=== PATIENT | female | born 2000 | race Caucasian/White ===

== ENCOUNTER 2020-12-19 19:32 | Inpatient (IN) ==
[2020-12-19 18:12] LABS: Basophils % 0.1 %; Eosinophils # 0.1 K/mcL (0.0-0.6); Eosinophils % 0.7 %; Hematocrit 35.4 % (35.3-44.9); Hemoglobin 11.3 g/dL (11.5-15.4); Immature Granulocytes % 0.3 % (0-4); Lymphocytes # 1.6 K/mcL (0.6-4.6); Lymphocytes % 17.5 %; Mean Corpuscular HGB Conc 31.9 g/dL (31.6-35.5); Mean Corpuscular Volume 87.8 fL (83.0-100.0); Mean Platelet Volume 10.5 fL (9.4-12.4); Monocytes # 0.7 K/mcL (0.0-1.3); Neutrophils # 6.7 K/mcL (1.6-8.9); Platelet Count 385 K/mcL (140-400); Red Blood Count 4.03 M/mcL (3.82-4.97); Red Cell Distribution Width 14.6 % (11.5-14.5); Segmented Neutrophils % 73.4 %; White Blood Count 9.1 K/mcL (4.3-11.1)
[2020-12-19 18:31] LABS: Alanine Aminotransferase 8 Units/L (7-52); Aspartate Amino Transferase 12 Units/L (13-39); BUN/Creatinine Ratio 14 (6-26); Blood Urea Nitrogen 8 mg/dL (6-20); Lactate Dehydrogenase 140 Units/L (140-271); eGFR For African Americans > 60 (> 60); eGFR For Non-African Americans > 60 (> 60)
[2020-12-19 18:34] LABS: Bilirubin,Urine Negative (Negative); Blood,Urine Negative (Negative); Clarity,Urine Clear (Clear); Color,Urine Light-Yellow (Yellow); Glucose,Urine (UA) Normal (Normal); Ketones,Urine Negative (Negative); Leukocyte Esterase,Urine Negative (Negative); Nitrite,Urine Negative (Negative); Protein,Urine Negative (Neg-Trace); Specific Gravity,Urine 1.015 (1.010-1.025); Urobilinogen,Urine Normal (Normal)
[2020-12-19 18:42] LABS: Protein/Creatinine Ratio,Urine 0.14 mg/mg (0.00-0.20)
[~2020-12-19 19:32] MED LIST: Acetaminophen 325 MG TABLET PO ONE; Azithromycin 500 MG in 0.9 % Sodium Chloride 250 ML IVPB PRN; Famotidine 20 MG/2 ML VIAL IVP PRN; Metoclopramide 10 MG/2 ML VIAL IVP ONE; Metoclopramide 10 MG/2 ML VIAL IVP PRN; Naloxone 0.4 MG/ML INJ IVP PRN; Ondansetron 4 MG/2 ML VIAL IVP PRN; Oxytocin 20 units/ LR 1000 mL 20 UNIT/1,000 ML BAG IVC SCH; Ringers Solution, Lactated 1,000 ML IVC ONE; Ringers Solution, Lactated 1,000 ML IVC SCH; Ringers Solution, Lactated 1,000 ML ONE
[2020-12-19] MEDS ORDERED: *HR* Nalbuphine 10 MG/ML AMPUL IV ONE (19:35)
[2020-12-19] MEDS ORDERED: Epidural Premix (fent/bupiv) 110 ML EP ONE (19:42)
[2020-12-19] MEDS ORDERED: *HR* FentaNYL (PF) 100 MCG/2 ML VIAL ONE (19:43)
[2020-12-19] MEDS ORDERED: Ropivacaine/PF 0.2% 20 ML VIAL ONE (19:44)
[2020-12-19] MEDS ORDERED: EPHEDrine 50 MG/ML VIAL IVP PRN (20:13)
[2020-12-19] MEDS ORDERED: *HR* FentaNYL (PF) 100 MCG/2 ML VIAL EP ONE (20:13)
[2020-12-19] MEDS ORDERED: Epidural Premix (fent/bupiv) 110 ML EP SCH (20:15)
[2020-12-19 20:16] LABS: Influenza A PCR Negative (Negative); Influenza B PCR Negative (Negative); Resp. Syncytial Virus PCR Negative (Negative); SARS-CoV-2 by PCR (In House) Negative (Negative)
[2020-12-19 20:32] LABS: Amphetamine Screen,Urine Negative ng/mL (Cutoff=1000); Barbiturate Screen,Urine Negative ng/mL (Cutoff=200); Benzodiazepines Screen,Urine Negative ng/mL (Cutoff=200); Cannabinoid Screen,Urine Negative ng/mL (Cutoff = 50); Cocaine Screen,Urine Negative ng/mL (Cutoff= 300); Opiate Screen,Urine Negative ng/mL (Cutoff=300); Phencyclidine Screen,Urine Negative ng/mL (Cutoff=25)
[2020-12-20] MEDS ORDERED: Lidocaine/EPI 1:200k 2% PF 20 ML VIAL ONE (02:59)
[2020-12-20] MEDS ORDERED: Ondansetron 4 MG/2 ML VIAL ONE (03:16)
[2020-12-20] MEDS ORDERED: Acetaminophen IV 1,000 MG/100 ML BAG IVPB ONE (03:29)
[2020-12-20] MEDS ORDERED: *HR* FentaNYL (PF) 100 MCG/2 ML VIAL ONE (03:31)
[2020-12-20] MEDS ORDERED: Ketorolac 30 MG/ML VIAL ONE (04:05)
[2020-12-20] MEDS ORDERED: *HR* Morphine Sulfate/PF 10 MG/10 ML AMPUL ONE (04:18)
[2020-12-20] MEDS ORDERED: Naloxone 0.4 MG/ML INJ IVP PRN (06:05)
[2020-12-20] MEDS ORDERED: Ondansetron 4 MG/2 ML VIAL IVP PRN (06:05)
[2020-12-20] MEDS ORDERED: Rho Immune Globulin 1,500 UNIT SYRINGE IM ONE (06:05)
[2020-12-20] MEDS ORDERED: Metoclopramide 10 MG/2 ML VIAL IVP PRN (06:05)
[2020-12-20] MEDS: Acetaminophen 325 MG TABLET PO SCH ×3 (08:24→19:59)
[2020-12-20] MEDS: Prenatal Vit/FA 1 EACH TABLET PO SCH (08:24)
[2020-12-20] MEDS: Ibuprofen 600 MG TABLET PO SCH ×3 (08:24→19:59)
[2020-12-20] MEDS: *HR* OxyCODONE Immed Rel 5 MG TABLET PO PRN ×3 (12:18→21:34)
[2020-12-20] MEDS: *HR* Enoxaparin 60 MG/0.6 ML SYRINGE SQ SCH (18:32)
[2020-12-20] MEDS: Oxytocin 20 units/ LR 1000 mL 20 UNIT/1,000 ML BAG IVC SCH (19:55)
[2020-12-21] MEDS: Acetaminophen 325 MG TABLET PO SCH ×4 (02:15→22:13)
[2020-12-21] MEDS: Ibuprofen 600 MG TABLET PO SCH ×4 (02:15→22:14)
[2020-12-21] MEDS: *HR* OxyCODONE Immed Rel 5 MG TABLET PO PRN ×4 (02:15→18:50)
[2020-12-21 05:05] LABS: Basophils % 0.2 %; Eosinophils # 0.1 K/mcL (0.0-0.6); Eosinophils % 0.9 %; Hematocrit 30.3 % (35.3-44.9); Hemoglobin 9.5 g/dL (11.5-15.4); Immature Granulocytes % 0.5 % (0-4); Lymphocytes # 1.7 K/mcL (0.6-4.6); Lymphocytes % 16.2 %; Mean Corpuscular HGB Conc 31.4 g/dL (31.6-35.5); Mean Corpuscular Hemoglobin 28.3 pg (28.0-33.3); Mean Corpuscular Volume 90.2 fL (83.0-100.0); Mean Platelet Volume 10.5 fL (9.4-12.4); Monocytes # 0.8 K/mcL (0.0-1.3); Monocytes % 7.7 %; Neutrophils # 7.6 K/mcL (1.6-8.9); Platelet Count 279 K/mcL (140-400); Red Blood Count 3.36 M/mcL (3.82-4.97); Segmented Neutrophils % 74.5 %; White Blood Count 10.2 K/mcL (4.3-11.1)
[2020-12-21] MEDS: *HR* Enoxaparin 60 MG/0.6 ML SYRINGE SQ SCH ×2 (06:54→21:13)
[2020-12-21] MEDS: Prenatal Vit/FA 1 EACH TABLET PO SCH (07:57)
[2020-12-21] MEDS: Simethicone 80 MG TAB.CHEW PO PRN ×3 (07:57→18:51)
[2020-12-22] MEDS: Acetaminophen 325 MG TABLET PO SCH (06:06)
[2020-12-22] MEDS: *HR* Enoxaparin 60 MG/0.6 ML SYRINGE SQ SCH (06:06)
[2020-12-22] MEDS: Ibuprofen 600 MG TABLET PO SCH ×2 (06:06→13:54)
[2020-12-22 07:48] VITALS: BP 108/63; PULSE 84; TEMP 97.8; O2SAT 97
[2020-12-22] MEDS: Prenatal Vit/FA 1 EACH TABLET PO SCH (09:21)
[2020-12-22] MEDS: Simethicone 80 MG TAB.CHEW PO PRN (09:21)
[2020-12-22] MEDS: *HR* OxyCODONE Immed Rel 5 MG TABLET PO PRN (13:54)
== END 2020-12-22 16:25 | disposition home or self-care (01) | DRG 540 ==
LOC: 1NENULAB → 1NENUOBS 12-20 07:34
PROVIDERS: ADMIT Obstetrics & Gynecology; ATTEND Obstetrics & Gynecology